=== PATIENT | male | born 1995 | race Two or more races ===

== ENCOUNTER 2020-01-11 09:20 | Emergency (ER) | payer SELFPAY ==
[~2020-01-11] VITALS: Ht 175.3 cm; Wt 84.0 kg
[2020-01-11] MEDS ORDERED: IBUPROFEN 600MG TABLET PO ONE (10:00)
[2020-01-11] MEDS ORDERED: CEFTRIAXONE SODIUM 250 MG/VIAL IM ONE (10:00)
[2020-01-11] MEDS ORDERED: ACETAMINOPHEN 500MG TABLET PO ONE (10:00)
[2020-01-11] MEDS ORDERED: DOXYCYCLINE HYCLATE 100MG CAPSULE PO ONE (10:00)
[2020-01-11] MEDS ORDERED: DOXYCYCLINE HYCLATE 100MG CAPSULE PO SCH (10:30)
[2020-01-11 11:58] VITALS: BP 125/60
== END 2020-01-11 11:58 | disposition home or self-care (01) ==
LOC: ER 09:20
DX: N45.1 Epididymitis (principal); R03.0 Elevated blood-pressure reading, without diagnosis of hypertension
CPT/HCPCS: 76870; 93976; 96372; 99284; J0696